=== PATIENT | female | born 1965 ===

== ENCOUNTER 2020-12-15 09:47 | Observation (INO) ==
[~2020-12-15 09:47] MED LIST: Buffered Lidocaine 1% SYRIN 1 ml INTRADERM ONE; DiMENhydriNATE IV 50 mg/ml 1 ml VIAL IV PUSH ONE; HYDROmorphone 1 MG/1 ML SYRINGE IV PRN; Lactated Ringers 1000 ml BAG 1,000 ML IV SCH; Metoclopramide 5 MG/ML VIAL (10 mg) IV PRN; Naloxone 0.4 mg VIAL 0.4 mg/ml 1 ml VIAL IV PRN; Ondansetron 4 mg VIAL 2 MG/ML 2 ml VIAL IV PRN; fentaNYL 100 mcg/2 ml 50 MCG/ML VIAL IV PRN
[2020-12-15] MEDS ORDERED: Buffered Lidocaine 1% SYRIN 1 ml INTRADERM ONE (10:00)
[2020-12-15] MEDS ORDERED: DiMENhydriNATE IV 50 mg/ml 1 ml VIAL ONE (10:00)
[2020-12-15] MEDS ORDERED: ceFAZolin 2 GM in NS PREMIX 2 GM/100 ML BAG IVPB ONE (10:00)
[2020-12-15] MEDS ORDERED: Midazolam 2 mg/2 ml VIAL 1 mg/ml 2 ml VIAL (2 mg) ONE (10:18)
[2020-12-15] MEDS ORDERED: Propofol 10 MG/ML 20 ML BTL ONE (10:18)
[2020-12-15] MEDS ORDERED: Rocuronium 50 mg VIAL 10 mg/ml 5 ml VIAL (50 mg) ONE (10:18)
[2020-12-15] MEDS ORDERED: Ondansetron 4 mg VIAL 2 MG/ML 2 ml VIAL ONE (10:18)
[2020-12-15] MEDS ORDERED: Dexamethasone IV 4 MG/ML VIAL 1 ml VIAL ONE (10:18)
[2020-12-15] MEDS ORDERED: fentaNYL 250 mcg/5 ml 50 MCG/ML 5 ml VIAL (250 MCG) ONE (10:19)
[2020-12-15] MEDS ORDERED: Lidocaine 2% PF 5 ML VIAL ONE (10:22)
[2020-12-15] MEDS ORDERED: Artificial Tear OPHTH.OINT 3.5 GM ONE (10:48)
[2020-12-15] MEDS ORDERED: Bupivacaine 0.25% EPI 200,000 30 ML SDV ONE (10:48)
[2020-12-15] MEDS ORDERED: HYDROmorphone 1 MG/1 ML SYRINGE ONE (12:29)
[2020-12-15] MEDS ORDERED: EPHEDrine (Pressors) 50 MG/ML VIAL ONE (12:36)
[2020-12-15] MEDS ORDERED: Acetaminophen IV 1 GM/100ML 100 ML IV ONE (14:26)
[2020-12-15] MEDS ORDERED: HYDROcodone/ACETAMIN 5/325 mg TAB PO PRN ×2 (15:19)
[2020-12-15] MEDS ORDERED: Ondansetron 4 mg VIAL 2 MG/ML 2 ml VIAL IV PRN (15:19)
[2020-12-15] MEDS ORDERED: Magnesium Hydroxide LIQ 30 ML UDC PO PRN (15:19)
[2020-12-15] MEDS ORDERED: oxyCODONE/Acetamin 5/325 mg TAB PO PRN (17:57)
[2020-12-15] MEDS: oxyCODONE/Acetamin 5/325 mg TAB PO PRN ×2 (18:02→22:53)
[2020-12-16] MEDS: oxyCODONE/Acetamin 5/325 mg TAB PO PRN (06:07)
[2020-12-16] MEDS ORDERED: Vitamin THERAPEUTIC TAB PO SCH (09:00)
[2020-12-16 11:11] VITALS: BP 108/69
[2020-12-16] MEDS ORDERED: Calcium/Vitamin D TAB 250/125 TAB PO SCH (18:00)
== END 2020-12-16 11:25 | disposition home or self-care (01) ==
LOC: SSU 09:47 → OR 09:47
PROVIDERS: ADMIT Neurological Surgery; ATTEND Neurological Surgery